=== PATIENT | male | born 1990 | race Caucasian/White ===

== ENCOUNTER 2018-01-10 21:26 | Emergency (ER) | payer OTHER, MEDICAID ==
[~2018-01-10] VITALS: Ht 170.2 cm; Wt 99.8 kg
[~2018-01-10 21:26] MED LIST: ACETIC ACID15 ML OT; AMOXICILLIN 50500 MG PO; CARAFATE 1 GM TA1 GM PO; CIPRO500 MG PO; CIPROFLOXIN HC2.5 M1 OPHTHALMIC; CIPROFLOXIN HC2.5 M1 OTIC; HYDROCODON-ACE1 EAC7 PO; HYDROCODONE-AP1 EAC6 PO; IBUPROFEN 800800 M1 PO; KEFLEX500 MG PO; METFORMIN HCL500 MG PO; NEURONTIN600 MG PO; NORCO 5-325 TA1 EACH PO; NYSTATIN100000 UNI PO; OMEPRAZOLE 20 M20 M1 PO; PENICILLIN VK500 MG PO; PEPCID20 MG PO; PHENERGAN 25 MG25 M1 PO; PRILOSEC 20 MG20 MG PO; TESSALON PERLE100 MG PO; TRAZODONE 150150 M1 PO; VENTOLIN HFA 1818 GM INH; ZPAK PO
[2018-01-10 21:46] LABS: ABSOLUTE BASOPHILS 0.1 thou/uL (0.0-0.2); ABSOLUTE EOSINOPHILS 0.1 thou/uL (0.0-0.7); ABSOLUTE LYMPHOCYTES 1.6 thou/uL (0.8-5.3); ABSOLUTE MONOCYTES 0.5 thou/uL (0.0-1.2); ABSOLUTE NEUTROPHILS 3.2 thou/uL (1.6-8.1); BASOPHILS 1.3 %; EOSINOPHILS 2.6 %; HEMATOCRIT 39.5 % (42.0-52.0); HEMOGLOBIN 13.5 gm/dL (14.0-18.0); LYMPHOCYTES 28.9 %; MCH 27.9 pg (26.0-34.0); MCV 81.9 fL (80.0-100.0); MONOCYTES 8.6 %; MPV 9.2 fl. (7.2-11.1); NUCLEATED RBCS 0 /100WBC; PLATELET COUNT* 166 thou/uL (150-400); POLYS 58.6 %; RBC 4.83 mil/uL (4.50-6.00); RDW-CV 13.5 % (10.5-14.5); WBC 5.5 thou/uL (4.0-11.0)
[2018-01-10 21:54] LABS: ANION GAP 7 mmol/L (7-16); BUN 22 mg/dL (7-18); CALCIUM 8.2 mg/dL (8.5-10.1); CHLORIDE 102 mmol/L (98-107); CO2 26 mmol/L (21-32); GLUCOSE 148 mg/dL (70-99); POTASSIUM 3.6 mmol/L (3.5-5.1); SODIUM 135 mmol/L (136-145)
[2018-01-10 21:58] LABS: APTT 31.5 Seconds (25.0-31.3); INR 0.9; PROTIME 9.5 Seconds (9.20-11.50)
[2018-01-10 22:12] LABS: ALBUMIN 3.7 g/dL (3.4-5.0); ALKALINE PHOSPHATASE 105 U/L (46-116); CK-MB MASS < 0.5 ng/mL (<0.5-3.6); LIPASE 107 U/L (73-393); MAGNESIUM 1.9 mg/dL (1.8-2.4); NT-PRO BRAIN NAT PEPTIDE 17 pg/mL (<300); SGOT 21 U/L (15-37); SGPT 43 U/L (30-65); TOTAL BILIRUBIN 0.2 mg/dL (<0.1-1.0); TOTAL PROTEIN 7.2 g/dL (6.4-8.2); TROPONIN-I LEVEL <0.06 ng/mL (<0.06)
[2018-01-10] MEDS ORDERED: PREDNISONE 20 M20 M1 PO (22:39)
[2018-01-10] MEDS ORDERED: VENTOLIN HFA 1818 GM INH (22:39)
[2018-01-10] MEDS ORDERED: ZPAK PO (22:39)
[2018-01-10 23:00] VITALS: BP 131/68
--- NOTE | 2018-01-12 12:48 | EKG ---
[place] [address] ELECTROCARDIOGRAM REPORT Name: ISIAH CROFT Room: [facility]#: [id number] Admission: 01/10/18 Attend Phys: Discharge: 01/10/18 Date of : 88 Report #: [id number] THIS REPORT FOR: //name// [facility] ED Test Date: 2018-01-10 Test Time: 21:29:55 Pat Name: ISAIH CROFT Department: Room: Gender: Dining Host: NASH : 1990 Requested By: Uli Villalobos Order Number: [id number] MD: Mando Rosales Measurements Intervals [place] Rate: 93 P: 43 CO: 167 QRS: 37 QRSD: 104 T: 37 QT: 338 QTc: 421 Interpretive Statements Sinus rhythm Compared to ECG 04/04/2017 20:04:37 No significant changes Electronically Signed On 01-12-2018 12:48:31 CDT by Mando Rosales [email or web address] <ELECTRONICALLY SIGNED> By: Mando Rosales MD, [facility] 01/12/18 1248 28 28 Mando Rosales MD, FACC /EPI
== END 2018-01-10 23:01 | disposition home or self-care (01) ==
LOC: M.ERS 21:26
PROVIDERS: Family Medicine
DX: J40 Bronchitis, not specified as acute or chronic (principal); R07.9 Chest pain, unspecified; E11.9 Type 2 diabetes mellitus without complications; I10 Essential (primary) hypertension; J45.909 Unspecified asthma, uncomplicated; F17.210 Nicotine dependence, cigarettes, uncomplicated; Z88.8 Allergy status to other drugs, medicaments and biological substances

== ENCOUNTER 2018-06-05 17:21 | Emergency (ER) | payer OTHER, MEDICAID ==
[~2018-06-05] VITALS: Ht 170.2 cm; Wt 99.8 kg
[~2018-06-05 17:21] MED LIST changes: +PREDNISONE 20 M20 M1 PO
[2018-06-05] MEDS ORDERED: PREDNISONE50 MG PO (18:39)
[2018-06-05] MEDS ORDERED: ZPAK PO (18:39)
[2018-06-05] MEDS ORDERED: VENTOLIN HFA 1818 GM INH (18:39)
[2018-06-05 18:53] VITALS: BP 150/83
== END 2018-06-05 18:54 | disposition home or self-care (01) ==
LOC: M.ERS 17:21
DX: J40 Bronchitis, not specified as acute or chronic (principal); M77.9 Enthesopathy, unspecified; E11.9 Type 2 diabetes mellitus without complications; I10 Essential (primary) hypertension; F17.210 Nicotine dependence, cigarettes, uncomplicated; Z88.6 Allergy status to analgesic agent

== ENCOUNTER 2018-09-22 20:40 | Emergency (ER) | payer OTHER, MEDICAID ==
[~2018-09-22] VITALS: Ht 170.2 cm; Wt 99.8 kg
[~2018-09-22 20:40] MED LIST changes: +PREDNISONE50 MG PO
[2018-09-22 20:44] VITALS: BP 132/80
[2018-09-22] MEDS ORDERED: KEFLEX500 M1 PO (20:50)
[2018-09-22] MEDS ORDERED: ACETAMINOPHEN-1 EAC1 PO (21:10)
== END 2018-09-22 21:12 | disposition home or self-care (01) ==
LOC: M.ERS 20:40
DX: S61.210A Laceration without foreign body of right index finger without damage to nail, initial encounter (principal); E11.9 Type 2 diabetes mellitus without complications; J45.909 Unspecified asthma, uncomplicated; I10 Essential (primary) hypertension; F17.210 Nicotine dependence, cigarettes, uncomplicated; Z88.8 Allergy status to other drugs, medicaments and biological substances; W26.8XXA Contact with other sharp object(s), not elsewhere classified, initial encounter; Y93.89 Activity, other specified; Y92.89 Other specified places as the place of occurrence of the external cause; Y99.8 Other external cause status

== ENCOUNTER 2019-04-04 23:48 | Emergency (ER) | payer OTHER, MEDICAID ==
[~2019-04-04] VITALS: Ht 170.2 cm; Wt 93.0 kg
[~2019-04-04 23:48] MED LIST changes: +ACETAMINOPHEN-1 EAC1 PO; +KEFLEX500 M1 PO
[2019-04-05] MEDS ORDERED: HYDROCODON-ACE1 EAC8 PO (00:47)
[2019-04-05] MEDS ORDERED: CIPROFLOXIN HC2.5 M1 OPHTHALMIC (00:51)
[2019-04-05 00:58] VITALS: BP 152/88
== END 2019-04-05 00:59 | disposition home or self-care (01) ==
LOC: M.ERS 23:48
DX: T15.01XA Foreign body in cornea, right eye, initial encounter (principal); I10 Essential (primary) hypertension; E11.9 Type 2 diabetes mellitus without complications; J45.909 Unspecified asthma, uncomplicated; F17.210 Nicotine dependence, cigarettes, uncomplicated; Z88.8 Allergy status to other drugs, medicaments and biological substances; X58.XXXA Exposure to other specified factors, initial encounter; Y93.89 Activity, other specified; Y92.812 Truck as the place of occurrence of the external cause; Y99.0 Civilian activity done for income or pay